=== PATIENT | male | born 1980 | race Caucasian/White ===

== ENCOUNTER 2024-10-08 09:49 | Day surgery (SDC) | payer BC ==
--- NOTE | 2024-10-07 10:21 | HP ---
HISTORY OF PRESENT ILLNESS: The patient is a 43-year-old male who presents with anemia. He blood levels show he is anemic. He had a negative stool sample. He has not had any scopes to date. He reports some sour belches at times. He is on Ozempic for diabetes. The belching started after that medicine. He denies abdominal pain. PAST MEDICAL HISTORY: Hyperlipidemia, hypertension, diabetes. HOME MEDICATIONS: Ozempic, metformin, lisinopril, Lipitor, Prilosec, multivitamin. ALLERGIES: Negative. PAST SURGICAL HISTORY: Tonsillectomy. SOCIAL HISTORY: Negative FAMILY HISTORY: Diabetes. REVIEW OF SYSTEMS: CONSTITUTIONAL: Denies fever or chills. CHEST: Denies shortness of breath. CARDIOVASCULAR: Denies chest pain. ABDOMEN: Denies abdominal pain. PHYSICAL EXAMINATION: GENERAL: No acute distress. CARDIOVASCULAR: Regular rate and rhythm. RESPIRATORY: Nonlabored. No shortness of breath. ABDOMEN: Soft. IMPRESSION: Anemia. PLAN: EGD and colonoscopy with Dr. Veto Foley. Dictated for Dr. Foley by Luz Nayak NP.
[2024-10-08] MEDS ORDERED: DIPRIVAN 200 MG/20 ML IV ONE ×2 (11:41→12:32)
[2024-10-08] MEDS ORDERED: Versed 2 MG/2 ML Injection ONE (11:41)
[2024-10-08] MEDS ORDERED: GlucaGen 1 MG ONE (12:36)
[2024-10-08 12:47] VITALS: TEMP 97
[2024-10-08 12:51] VITALS: RESP 16
[2024-10-08 13:01] VITALS: BP 127/71; PULSE 65; O2SAT 95
--- NOTE | 2024-10-09 11:33 | OP ---
SURGERY DATE/TIME: 10/08/2024 [id number] PREOPERATIVE DIAGNOSIS: Anemia. POSTOPERATIVE DIAGNOSES: 1) Grade 2 gastroesophageal reflux disease. 2) Normal colonoscopy. PROCEDURES: 1) Esophagogastroduodenoscopy. 2) Colonoscopy. SURGEON: Veto Foley MD ANESTHESIA: General. COMPLICATIONS: None. CONDITION: Stable. INDICATIONS: The patient has an anemia. This is new. He is referred for evaluation. DESCRIPTION OF PROCEDURE AND FINDINGS: MAC general anesthetic. Scope introduced. Pharyngoesophageal junction normal. Vocal cords are normal. Esophagus normal down EG junction. Grade 2/4 GERD. NO hiatal hernia. Fundus, body, and antrum normal. Duodenal bulb normal. Second portion normal. Scope looped upon itself satisfactory. Scope withdrawn. No significant bleeding from the upper tract. Anal digital examination was satisfactory. Scope was advanced rectum, sigmoid. Sigmoid a little redundant. A little spastic. His colon in general was a little spastic. We did give him Glucagon. This did improve it. We went across, over to the right side, down the right side into the cecum and we got into the base of the cecum. Base of the cecum was normal. Ileocecal valve appeared grossly normal. Appendix not grossly visible. On circumferential withdrawal, ascending, hepatic, transverse, splenic, descending, sigmoid, rectum and anus was all satisfactory. Certainly a one valve involvement.
== END 2024-10-08 13:07 | disposition home or self-care (01) ==
LOC: SDC 09:49
PROVIDERS: ATTEND Surgery
DX: K21.9 Gastro-esophageal reflux disease without esophagitis (principal); D64.9 Anemia, unspecified; E11.9 Type 2 diabetes mellitus without complications
CPT/HCPCS: 82947; J1610; J2250; J2704